=== PATIENT | female | born 1965 | race Caucasian/White ===

== ENCOUNTER 2016-07-27 08:44 | Day surgery (SDC) | payer OTHER ==
[~2016-07-27] VITALS: Ht 160 cm; Wt 85.5 kg
[2016-07-27] VITALS (13 sets, daily range): BP systolic 107–142; BP diastolic 55–75; PULSE 58–82; RESP 12–20; Ht 160 cm; Wt 85.5 kg
[2016-07-27] MEDS ORDERED: SITA100T8 PO (09:16)
[2016-07-27] MEDS ORDERED: BENA5TAB2 PO (09:16)
[2016-07-27] MEDS ORDERED: GABA300C16 PO (09:16)
[2016-07-27] MEDS ORDERED: GLIP10TA95 PO (09:17)
[2016-07-27] MEDS ORDERED: FER325 PO (09:18)
[2016-07-27] MEDS ORDERED: IBUP-1542 PO (09:18)
[2016-07-27] MEDS ORDERED: SIMV10TA PO (09:18)
[2016-07-27] MEDS ORDERED: METF1000 PO (09:20)
[2016-07-27] MEDS ORDERED: CEFAZOLIN 2 GM/50 ML (PMX) 50 ML IVPB ONE (09:30)
[2016-07-27] MEDS ORDERED: SOD CHLORIDE 0.9% 1,000 ML IV ONE (09:30)
[2016-07-27] MEDS ORDERED: BUPIVACAINE 0.25% (MPF) 30 ML INJ ONE (11:59)
[2016-07-27] MEDS ORDERED: POLYMYXIN/BACITRACIN 1L IRRIG ONE (11:59)
[2016-07-27] MEDS ORDERED: MIDAZOLAM 1 MG/ML 2 ML INJ ONE (12:12)
[2016-07-27] MEDS ORDERED: FENTAnyl 50 MCG/ML VIAL ONE (12:12)
[2016-07-27] MEDS ORDERED: ONDANSETRON 4 MG INJ ONE (12:59)
[2016-07-27] MEDS ORDERED: KETOROLAC 30 MG INJ ONE (12:59)
[2016-07-27] MEDS ORDERED: LABETALOL HCL 20MG INJ IV PRN (13:00)
[2016-07-27] MEDS ORDERED: MEPERIDINE 25 MG INJ IV PRN (13:00)
[2016-07-27] MEDS ORDERED: DIPHENHYDRAMINE 50 MG INJ IV PRN (13:00)
[2016-07-27] MEDS ORDERED: hydrALAzine 20 MG INJ IV PRN (13:00)
[2016-07-27] MEDS ORDERED: FENTAnyl 50 MCG/ML VIAL IV PRN (13:00)
[2016-07-27] MEDS ORDERED: ONDANSETRON 4 MG INJ IV PRN (13:00)
[2016-07-27] MEDS ORDERED: HYDROmorphONE (0.2 MG/ML) 10ML SYG IV PRN ×2 (13:00)
[2016-07-27] MEDS ORDERED: CEFAZOLIN 1 GM INJ ONE (13:01)
[2016-07-27] MEDS ORDERED: GLYCOPYRROLATE 0.4 MG INJ ONE (13:01)
[2016-07-27] MEDS ORDERED: NEOSTIGMINE 3 MG/3 ML SYRINGE ONE (13:01)
[2016-07-27] MEDS ORDERED: LIDOCAINE 2% (SDV) 5 ML INJ ONE (13:01)
[2016-07-27] MEDS ORDERED: ROCURONIUM 50 MG INJ ONE (13:01)
[2016-07-27] MEDS ORDERED: PROPOFOL 20 ML ONE (13:01)
[2016-07-27] MEDS ORDERED: HYDROCODONE/APAP (5/325) TAB PO ONE (13:30)
[2016-07-27] MEDS ORDERED: ONDANSETRON 4 MG INJ IV STA (14:56)
--- NOTE | 2016-07-27 15:09 | OPR ---
DATE OF OPERATION: 07/27/2016 INDICATIONS: This is a 51-year-old female with incarcerated ventral hernia. She requests surgical repair. Risks, alternatives, benefits, and personnel were discussed with the patient. The patient expressed understanding and consents to the operation. PREOPERATIVE DIAGNOSIS: Incarcerated ventral hernia. POSTOPERATIVE DIAGNOSIS: Incarcerated ventral hernia. OPERATION PERFORMED: Laparoscopic incarcerated ventral hernia repair with 10 x [address] mesh. SURGEON: Bruno Smart MD. SPECIMEN: None. COMPLICATIONS: None. ANESTHESIA: General. PROCEDURE DESCRIPTION: The patient was taken to the OR and prepped and draped in the usual sterile fashion. Surgical timeout was performed. IV antibiotics were given. Left upper quadrant 5 mm inci maicol was made transversely with a 15 blade. Using a 5 mm optical trocar, optical entry was performe d. Pneumoperitoneum was established. Left flank 12 mm, left lower quadrant 5 mm optical trocars ar e placed under direct visualization. Upon initial inspection, there were incarcerated contents into the ventral hernia. This was reduced laparoscopically using laparoscopic harmonic and laparoscopic techniques. The ventral hernia defect was identified and closed with interrupted #1 Prolene using Endoclose an laparoscopic technique, underlay mesh was secured with SecureStrap. There was good hem ostasis. Additional #1 Prolene was also placed with Endoclose. There was good hemostasis. Ports w ere removed under direct visualization. Skin was closed using skin donna. Local anesthesia was i njected. Dry dressings were applied. Dictated By: BRUNO AMOR/BYRON Conf#: [id number] DID#: [id number]
== END 2016-07-27 15:25 | disposition home or self-care (01) ==
LOC: SDS 08:44
PROVIDERS: ATTEND Surgery
DX: K43.6 Other and unspecified ventral hernia with obstruction, without gangrene (principal); E11.9 Type 2 diabetes mellitus without complications; E78.5 Hyperlipidemia, unspecified; E66.9 Obesity, unspecified; Z68.33 Body mass index [BMI] 33.0-33.9, adult
CPT/HCPCS: 49561; 49568; 82962; C1781; J0690; J1885; J2250; J2405; J2710; J3010; Z7512; Z7610